=== PATIENT | female | born 1945 | race Caucasian/White ===

== ENCOUNTER → 2016-07-06 | Day surgery (SDC) | payer OTHER ==
[~2016-07-06] VITALS: Ht 154.9 cm; Wt 71.7 kg
[~2016-07-06] MED LIST: /ESOM40CA OR; ACET500C OR; ACETAMINOPHEN 325 MG TAB PO PRN; ACETYLCHOLINE OPHTH SOLN 1% 2ML As Ordered ONE; ALEVE PO; ASPI1TAB PO; AZEL0.055; AZEL0.1S3; AcetaZOLAMIDE 500 MG ER CAP PO ONE; BSS with VANC/TOB/EPI for EYE CASES IR ONE; BUPR1TAB17 PO; CEFUROXIME 1MG/0.1ML INTRACAMERAL INJ As Ordered ONE; CELE10TA PO; CHLO25TA PO; CITRTAB18 PO; COMB0.2S OU; CYCLOPENTOLATE 2% OPHTH SOLN As Ordered ONE; CYCLOPENTOLATE 2% OPHTH SOLN OS ONE; D5W/0.2% SODIUM CHLORIDE 250 ML IV SCH; FISH100049 PO; FLUTISP; HEALON DUET (HEALON 10MG/ML 0.55ML & HEALON ENDOCOAT 30MG/ML 0.85ML) As Ordered ONE; HYDROCHLOROTHIAZIDE PO; KETOROLAC 0.5% OPHTH SOLN OS ONE; LIDOCAINE 1% SDV 5 ML VIAL As Ordered ONE; LIDOCAINE 4% INJ 5 ML AMP OU ONE; LISINOPRIL PO; LOSA100T36 PO; MIDAZOLAM INJ 2 MG/2 ML VIAL (J2250) As Ordered ONE; MULT1TAB9 PO; NAPR500T2 PO; NEXI40GR PO; OFLOXACIN 0.3 % (OCUFLOX) OPTH SOL 5ML As Ordered ONE; OFLOXACIN 0.3 % (OCUFLOX) OPTH SOL 5ML OS ONE; PHENYLEPHRINE 2.5% OPHTH SOL 2ML As Ordered ONE; PHENYLEPHRINE 2.5% OPHTH SOL 2ML OS ONE; POTA10TA2 PO; POVIDONE-IODINE 5% OPHTH PREP SOL 30ML As Ordered ONE; PROPARACAINE 0.5% OPHTH SOL 15ML OS PRN; REST0.05 OU; SALI0.653; SLOWTAB2 PO; TRAV04OPD OD; TRIMETHOBENZAMIDE 300 MG CAP PO PRN; TROPICAMIDE 1% OPHTH SOLN 2 ML As Ordered ONE; TROPICAMIDE 1% OPHTH SOLN 2 ML OS ONE; TYLE500T78 PO; VITA-112 PO; VITA400C35 PO; WELL100T PO; fentaNYL 100 MCG/2 ML INJECTION (J3010) As Ordered ONE
[2016-07-06 09:30] VITALS: BP 139/64
--- NOTE | 2016-07-07 09:31 | RO ---
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 PROCEDURE: Phacoemulsification with intraocular lens implantation. PCB00, plus 24 and endocyclophotocoagulation and placement of the eye Glaukos iStent left eye. SURGEON: Dr. Denver Liriano BEE TENDER: None. ANESTHESIA: COMPLICATION: None. DESCRIPTION OF PROCEDURE: Patient was brought to the operating room and laid in the supine position. Left eye was prepped and draped in a sterile fashion for ophthalmic surgery and a lid speculum was placed. A temporal clear corneal incision was made after the sideport incision where EndoCoat was injected into the anterior chamber. Capsulorrhexis was done, followed by hydrodissection and phacoemulsification in a divide and conquer method. Excess cortical material was aspirated through the irrigation and aspiration cannula and Healon placed in the capsular bag, followed by the introduction of the intraocular lens, which was PCB00, plus 24 diopters. Healon was then placed in the ciliary sulcus and endocyclophotocoagulation was done at 280 degrees as visualized on the screen. The setting was 25 milliwatts and good results were noted by the shrinking of the ciliary processes. Healon was then placed into the anterior chamber to visualize the infranasal trabecular meshwork. The patient's head was rotated away from the surgeon and microscope under high magnification. With the help of the Gonio lens, the iStent was place in the infranasal quadrant. Excess viscoelastic was aspirated, wound was hydrate, lid speculum removed and the patient returned to recovery room in stable condition.
== END | disposition home or self-care (01) ==
LOC: M SDC 06:57
PROVIDERS: ATTEND Ophthalmology
DX: H26.9 Unspecified cataract (principal); H40.9 Unspecified glaucoma; I10 Essential (primary) hypertension; K21.9 Gastro-esophageal reflux disease without esophagitis; G47.33 Obstructive sleep apnea (adult) (pediatric); J30.9 Allergic rhinitis, unspecified; F41.9 Anxiety disorder, unspecified; F34.1 Dysthymic disorder; E83.42 Hypomagnesemia; E78.00 Pure hypercholesterolemia, unspecified; K52.9 Noninfective gastroenteritis and colitis, unspecified; E78.5 Hyperlipidemia, unspecified; M19.90 Unspecified osteoarthritis, unspecified site; F32.89 Other specified depressive episodes; E66.9 Obesity, unspecified; Z68.30 Body mass index [BMI] 30.0-30.9, adult; R73.09 Other abnormal glucose; I35.0 Nonrheumatic aortic (valve) stenosis; K82.4 Cholesterolosis of gallbladder; R73.9 Hyperglycemia, unspecified; M11.211 Other chondrocalcinosis, right shoulder; Z88.5 Allergy status to narcotic agent; Z79.899 Other long term (current) drug therapy; Z79.82 Long term (current) use of aspirin; Z87.891 Personal history of nicotine dependence; Z90.710 Acquired absence of both cervix and uterus
CPT/HCPCS: 66711; 66984; C1783; J2250; J3010

== ENCOUNTER 2018-08-01 08:07 | Day surgery (SDC) | payer OTHER ==
[~2018-08-01] VITALS: Ht 154.9 cm; Wt 69.4 kg
[2018-08-01] MEDS: NS 1,000 ML IV ONE (06:00)
[~2018-08-01 08:07] MED LIST changes: -/ESOM40CA OR; -ACETAMINOPHEN 325 MG TAB PO PRN; -ACETYLCHOLINE OPHTH SOLN 1% 2ML As Ordered ONE; -ASPI1TAB PO; +ASPI81TA26 PO; -AcetaZOLAMIDE 500 MG ER CAP PO ONE; -BSS with VANC/TOB/EPI for EYE CASES IR ONE; -BUPR1TAB17 PO; +BUPR1TAB53 PO; -CEFUROXIME 1MG/0.1ML INTRACAMERAL INJ As Ordered ONE; +CRES10TA PO; -CYCLOPENTOLATE 2% OPHTH SOLN As Ordered ONE; -CYCLOPENTOLATE 2% OPHTH SOLN OS ONE; -D5W/0.2% SODIUM CHLORIDE 250 ML IV SCH; -HEALON DUET (HEALON 10MG/ML 0.55ML & HEALON ENDOCOAT 30MG/ML 0.85ML) As Ordered ONE; -KETOROLAC 0.5% OPHTH SOLN OS ONE; -LIDOCAINE 1% SDV 5 ML VIAL As Ordered ONE; -LIDOCAINE 4% INJ 5 ML AMP OU ONE; -LOSA100T36 PO; +LOSA100T50 PO; -MIDAZOLAM INJ 2 MG/2 ML VIAL (J2250) As Ordered ONE; +NAPR-885 PO; -NAPR500T2 PO; +NEXI1CAP3 OR; -OFLOXACIN 0.3 % (OCUFLOX) OPTH SOL 5ML As Ordered ONE; -OFLOXACIN 0.3 % (OCUFLOX) OPTH SOL 5ML OS ONE; +PANT40TA3 PO; -PHENYLEPHRINE 2.5% OPHTH SOL 2ML As Ordered ONE; -PHENYLEPHRINE 2.5% OPHTH SOL 2ML OS ONE; -POTA10TA2 PO; +POTA1TAB23 PO; -POVIDONE-IODINE 5% OPHTH PREP SOL 30ML As Ordered ONE; -PROPARACAINE 0.5% OPHTH SOL 15ML OS PRN; +SALI0.6528; -SALI0.653; +TIMOXEOPD OU; -TRIMETHOBENZAMIDE 300 MG CAP PO PRN; -TROPICAMIDE 1% OPHTH SOLN 2 ML As Ordered ONE; -TROPICAMIDE 1% OPHTH SOLN 2 ML OS ONE; -fentaNYL 100 MCG/2 ML INJECTION (J3010) As Ordered ONE
[2018-08-01] MEDS ORDERED: PROPOFOL 200 MG/20 ML VIAL As Ordered ONE ×2 (08:56→09:34)
[2018-08-01] MEDS ORDERED: LIDOCAINE 2% INJ 100 MG/5 ML SDV (FOR ANES.) As Ordered ONE (08:56)
[2018-08-01] MEDS ORDERED: OMEP40CA2 PO (09:08)
[2018-08-01] MEDS ORDERED: ONDANSETRON 4MG/2ML VIAL (J2405) As Ordered ONE (09:24)
--- NOTE | 2018-08-01 09:44 | ROOR ---
Patient Name: Amberly Cruz Procedure Date: 08/01/2018 9:14 AM Date of : 1945 Age: 73 Room: [facility] Gender: Female Note Status: Finalized Procedure: Total Colonoscopy to Cecum + Bx. To r/o Microscopic Colitis Indications: Change in bowel habits Providers: Gee San MD Referring MD: Dang ARNOLD MD Requesting Provider: Medicines: Monitored Anesthesia Care Complications: No immediate complications. Procedure: Pre-Anesthesia Assessment: - The heart rate, respiratory rate, oxygen saturations, blood pressure, adequacy of pulmonary ventilation, and response to care were monitored throughout the procedure. The Colonoscope was introduced through the anus and advanced to the cecum, identified by appendiceal orifice and ileocecal valve. The colonoscopy was performed without difficulty. The patient tolerated the procedure well. The quality of the bowel preparation was excellent. Findings: The perianal and digital rectal examinations were normal. Non-bleeding internal hemorrhoids were found during retroflexion. The hemorrhoids were small and Grade I (internal hemorrhoids that do not prolapse). Multiple medium-mouthed diverticula were found in the recto-sigmoid colon, sigmoid colon and descending colon. The exam was otherwise without abnormality on direct and retroflexion views. Biopsies for histology were taken with a cold forceps from the cecum, ascending colon, transverse colon and rectosigmoid colon for evaluation of microscopic colitis. The exam was otherwise without abnormality. Impression: - Non-bleeding internal hemorrhoids. - Diverticulosis in the recto-sigmoid colon, in the sigmoid colon and in the descending colon. - The examination was otherwise normal on direct and retroflexion views. - The examination was otherwise normal. - Biopsies were taken with a cold forceps from the cecum, ascending colon, transverse colon and rectosigmoid colon for evaluation of microscopic colitis. - The exam was otherwise normal to the cecum. Recommendation: - Patient has a contact number available for emergencies. The signs and symptoms of potential delayed complications were discussed with the patient. Return to normal activities tomorrow. Written discharge instructions were provided to the patient. - High fiber diet. - Discharge patient to home. - Continue present medications. - Await pathology results. - Telephone GI clinic for pathology results in 1 week. - Repeat colonoscopy for symptoms only. - Check Portal Online for Path Results.([email or web address] - The findings and recommendations were discussed with the patient's family. Gee San MD Gee San MD 08/01/2018 9:43:57 AM Electronically signed by Gee San MD Number of Addenda: 0 Note Initiated On: 08/01/2018 9:14 AM Estimated Blood Loss: Estimated blood loss: none.
[2018-08-01 10:05] VITALS: BP 124/58
== END 2018-08-01 10:17 | disposition home or self-care (01) ==
LOC: M OPP 08:07
PROVIDERS: ATTEND Internal Medicine Gastroenterology
DX: K64.0 First degree hemorrhoids (principal); K57.30 Diverticulosis of large intestine without perforation or abscess without bleeding; R19.4 Change in bowel habit
CPT/HCPCS: 45380; 88305; J2405

== ENCOUNTER → 2018-08-16 | Outpatient (REF) | payer OTHER ==
[~2018-08-16] MED LIST changes: +OMEP40CA2 PO
== END ==
LOC: M LAB REF 11:04
PROVIDERS: ATTEND Physician Assistant
DX: R10.30 Lower abdominal pain, unspecified (principal)

== ENCOUNTER 2018-09-22 19:13 | Emergency (ER) | payer OTHER ==
[~2018-09-22] VITALS: Ht 154.9 cm; Wt 70.5 kg
[~2018-09-22 19:13] MED LIST changes: +AMLO5TAB6 PO; +KRIL1CAP10 PO; +PRED20TA PO; +ROSU5TAB4 PO
[2018-09-22 20:20] LABS: BASO % 0.2 % (0.0-1.0); EOS # 0.2 10^3/uL (0.0-0.50); EOS % 1.4 % (0.0-3.0); HEMOGLOBIN 12.2 g/dl (12.0-15.5); LYMPH # 2.6 10^3/uL (1.5-4.5); MEAN CORPUSCULAR HEMOGLOBIN 33.3 pg (27.0-33.0); MEAN CORPUSCULAR HGB CONC 34.9 g/dl (32.0-36.5); MEAN CORPUSCULAR VOLUME 95.6 fl (80.0-96.0); MONO # 1.6 10^3/uL (0.0-0.8); NEUTROPHILS # 8.7 10^3/uL (1.8-7.7); PLATELET COUNT, AUTOMATED 273 10^3/uL (150-450); RED BLOOD COUNT 3.66 10^6/uL (4.00-5.40); WHITE BLOOD COUNT 13.2 10^3/uL (4.0-10.0)
[2018-09-22 20:44] LABS: BILIRUBIN,TOTAL 0.4 MG/DL (0.2-1.0); CALCIUM LEVEL 9.6 MG/DL (8.8-10.2); CREATININE FOR GFR 1.11 MG/DL (0.55-1.30); GLOMERULAR FILTRATION RATE 51.6 (>39); POTASSIUM SERUM 3.9 MEQ/L (3.5-5.1)
[2018-09-22 20:45] LABS: ALBUMIN 3.5 GM/DL (3.2-5.2); BILIRUBIN,DIRECT 0.1 MG/DL (0.0-0.2); TOTAL PROTEIN 6.4 GM/DL (6.4-8.2)
[2018-09-22] MEDS ORDERED: ONDANSETRON 4MG/2ML VIAL (J2405) IV ONE (20:45)
[2018-09-22] MEDS ORDERED: MORPHINE 2 MG/ML 1ML SYRINGE (J2270) IV ONE (20:45)
[2018-09-22] MEDS ORDERED: NS 1,000 ML IV SCH (20:45)
[2018-09-22] MEDS ORDERED: ISOVUE-370 76% 100ML VIAL (Q9967) As Ordered ONE (20:57)
--- NOTE | 2018-09-22 23:20 | REPVR ---
EXAM: CT Abdomen and Pelvis With Contrast EXAM DATE/TIME: 09/22/2018 10:24 PM CLINICAL HISTORY: 73 years old, female; Abdominal pain; Localized; Right lower quadrant (rlq); Prior surgery; Surgery date: 6+ months; Additional info: Rlq pain; R/O appy TECHNIQUE: Imaging protocol: Axial computed tomography images of the abdomen and pelvis with intravenous contrast. Coronal and sagittal reformatted images were created and reviewed. Radiation optimization: All CT scans at this facility use at least one of these dose optimization techniques: automated exposure control; mA and/or kV adjustment per patient size (includes targeted exams where dose is matched to clinical indication); or iterative reconstruction. Contrast material: ISOVUE 370; Contrast volume: 100 ml; Contrast route: IV; COMPARISON: No relevant prior studies available. FINDINGS: Lung bases are clear. No pleural or pericardial effusion. The liver, spleen, pancreas and adrenals are grossly normal. Gallbladder is normally distended with no evidence of calcified gallstones. Kidneys demonstrate symmetric function. No focal parenchymal abnormalities or obstructive uropathy. Atherosclerotic changes identified within the abdominal aorta and aortic branch vessels with no evidence of aneurysmal dilatation. Small bowel loops are grossly normal. There is a normal caliber appendix with no CT evidence of appendicitis. Moderate left-sided colonic diverticular changes. No evidence of diverticulitis. Pelvic organs are grossly normal. Uterus appears surgically absent. No significant free fluid in the abdomen or pelvis. Visualized osseous structures are grossly normal for age. IMPRESSION: No acute intra-abdominal or pelvic process. No evidence of enteric obstruction, appendicitis, diverticulitis or obstructive uropathy. Additional nonemergent findings as described above. Electronically signed by: Riley Cortes On 09/22/2018 23:20:03 PM
[2018-09-22 23:36] VITALS: BP 141/67
[2018-09-22] MEDS ORDERED: NORC1TAB7 PO (23:40)
[2018-09-22] MEDS ORDERED: KEFL500C17 PO (23:40)
[2018-09-22] MEDS ORDERED: ONDA4TAB5 PO (23:40)
[2018-09-22] MEDS ORDERED: CEPHALEXIN 500 MG CAP PO ONE (23:45)
[2018-09-22] MEDS ORDERED: NORCO 5/325MG TABLET (BULK FOR ED) PO ONE (23:45)
[2018-09-22] MEDS ORDERED: ONDANSETRON 4 MG ORAL DISINTEGRATING TAB (Q0162 PER 1MG) PO ONE (23:45)
== END 2018-09-22 23:53 | disposition home or self-care (01) ==
LOC: M ED 19:13
DX: N30.00 Acute cystitis without hematuria (principal); S39.011A Strain of muscle, fascia and tendon of abdomen, initial encounter; X58.XXXA Exposure to other specified factors, initial encounter; Y92.89 Other specified places as the place of occurrence of the external cause; I10 Essential (primary) hypertension; K21.9 Gastro-esophageal reflux disease without esophagitis; F32.9 Major depressive disorder, single episode, unspecified; Z87.442 Personal history of urinary calculi; Z87.891 Personal history of nicotine dependence; Z88.5 Allergy status to narcotic agent; Z79.899 Other long term (current) drug therapy
CPT/HCPCS: 74177; 80048; 80076; 81001; 83690; 85025; 87086; 96374; 96375; 99284; J2270; J2405; Q0162; Q9967

== ENCOUNTER 2018-09-29 16:27 | Inpatient (IN) | payer OTHER ==
[~2018-09-29] VITALS: Ht 154.9 cm; Wt 68.0 kg
[~2018-09-29 16:27] MED LIST changes: +KEFL500C17 PO; +NORC1TAB7 PO; +ONDA4TAB5 PO
[2018-09-29] MEDS ORDERED: DIAZ5TAB PO (16:50)
[2018-09-29] MEDS ORDERED: IBUP-1022 PO (16:50)
[2018-09-29] MEDS ORDERED: MORPHINE 4 MG/ML 1ML VIAL/SYRINGE (J2270) IV ONE (17:00)
[2018-09-29] MEDS ORDERED: NS 500 ML IV ONE (17:00)
[2018-09-29] MEDS ORDERED: ONDANSETRON 4MG/2ML VIAL (J2405) IV ONE (17:00)
[2018-09-29 17:24] LABS: BASO % 0.2 % (0.0-1.0); EOS # 0.1 10^3/uL (0.0-0.50); EOS % 0.5 % (0.0-3.0); HEMATOCRIT 33.7 % (36.0-47.0); HEMOGLOBIN 11.4 g/dl (12.0-15.5); LYMPH # 1.1 10^3/uL (1.5-4.5); LYMPH % 11.2 % (24.0-44.0); MEAN CORPUSCULAR HEMOGLOBIN 31.3 pg (27.0-33.0); MEAN CORPUSCULAR HGB CONC 33.8 g/dl (32.0-36.5); MEAN CORPUSCULAR VOLUME 92.6 fl (80.0-96.0); MONO # 0.6 10^3/uL (0.0-0.8); MONO % 6.3 % (0.0-5.0); NEUTROPHILS # 8.2 10^3/uL (1.8-7.7); NEUTROPHILS % 81.6 % (36.0-66.0); PLATELET COUNT, AUTOMATED 411 10^3/uL (150-450); RED BLOOD COUNT 3.64 10^6/uL (4.00-5.40); WHITE BLOOD COUNT 10.1 10^3/uL (4.0-10.0)
--- NOTE | 2018-09-29 17:44 | REP ---
Clinical: Back pain . Comparison: 09/14/2018 to the Findings: The mediastinum and cardiac silhouette are stable and within normal limits for portable technique. The lung bernal are clear without acute consolidation, effusion, or pneumothorax. Skeletal structures are intact. Impression: No acute cardiopulmonary process appreciated. Electronically Signed by Srikanth Pablo MD 09/29/2018 05:36 P
[2018-09-29] MEDS ORDERED: ACETAMINOPHEN 325 MG TAB PO ONE (18:00)
[2018-09-29 18:05] LABS: ALBUMIN 2.9 GM/DL (3.2-5.2); ALT/SGPT 26 U/L (12-78); AMYLASE 71 U/L (25-115); BILIRUBIN,DIRECT 0.1 MG/DL (0.0-0.2); BILIRUBIN,TOTAL 0.3 MG/DL (0.2-1.0); BLOOD UREA NITROGEN 12 MG/DL (7-18); CALCIUM LEVEL 9.5 MG/DL (8.8-10.2); CARBON DIOXIDE LEVEL 28 MEQ/L (21-32); CHLORIDE LEVEL 103 MEQ/L (98-107); CPK CREATINE PHOSPHOKINASE 45 U/L (26-192); CREATININE FOR GFR 0.85 MG/DL (0.55-1.30); GLOMERULAR FILTRATION RATE > 60.0 (>39); GLUCOSE, FASTING 89 MG/DL (70-100); LIPASE 81 U/L (73-393); MB/CK RELATIVE INDEX 2.67 (< OR =4); POTASSIUM SERUM 3.7 MEQ/L (3.5-5.1); SODIUM LEVEL 141 MEQ/L (136-145); TOTAL PROTEIN 6.6 GM/DL (6.4-8.2); TROPONIN I < 0.02 NG/ML (< 0.10)
[2018-09-29 18:11] LABS: ERYTHROCYTE SEDIMENTATION RATE 114 mm/hr (0-30)
[2018-09-29] MEDS ORDERED: MORPHINE 2 MG/ML 1ML SYRINGE (J2270) IV ONE (18:45)
[2018-09-29] MEDS ORDERED: PROHANCE 279.3MG/ML 15ML VIAL (A9576) As Ordered ONE (20:05)
[2018-09-29] MEDS ORDERED: MORPHINE 2 MG/ML 1ML SYRINGE (J2270) IV PRN (22:30)
--- NOTE | 2018-09-29 22:33 | REPVR ---
EXAM: MR Cervical Spine Without and With Contrast EXAM DATE/TIME: 09/29/2018 8:33 PM CLINICAL HISTORY: 73 years old, female; Pain; Cervicalgia; Patient HX: PT states she "hurts all over" has been vomitting, diarhea for several days, shakes, fever, h/a nki, no priors; Additional info: Back pain x 3 wks, fever RO out epidural abscess and disc TECHNIQUE: Imaging protocol: Multiplanar magnetic resonance images of the cervical spine without and with intravenous contrast. Contrast material: PROHANCE; Contrast volume: 14 ml; Contrast route: 20G ANGIO COMPARISON: No relevant prior studies available. FINDINGS: Normal vertebral alignment with no segmental subluxation. Vertebral body height, morphology and marrow signal are normal. No fracture or destructive process. No abnormal or concerning osseous enhancement Benign degenerative endplate changes are present C4-5 through C6-7, with endplate vertebral body osteophytes. Degenerative disc height loss is present at C6-7, C5-6 and to a lesser extent T4-5. Cervical cord is normal in morphology and signal. No abnormal cord enhancement Imaged structures within the posterior fossa are unremarkable. C2-3: No significant canal or foraminal stenosis. C3-4: No significant canal or foraminal stenosis. C4-5: Minor ridging disc/osteophyte complex. No spinal canal narrowing. Mild asymmetric left neural foraminal narrowing secondary to uncovertebral hypertrophy. C5-6: Ridging disc/osteophyte complex with no significant spinal canal narrowing and minimal neural foraminal compromise. C6-7: Ridging disc/osteophyte complex with mild indentation on the ventral thecal sac and minimal neural foraminal stenosis No focal prevertebral soft tissue abnormality. Superficial to the spinous process of C6 and C7 there is low-grade soft tissue enhancement which may represent mild superficial soft tissue inflammation. No fluid collection IMPRESSION: Mild superficial soft tissue enhancement superficial to the C6 and C7 spinous processes, which may represent bruising or mild superficial ligament strain. No fluid collection or evidence of drainable soft tissue infection. No evidence of epidural abscess, spinal infection or acute disc extrusion. Mild cervical spondylosis as indicated above Electronically signed by: Sarwat Lockwood On 09/29/2018 22:33:46 PM
--- NOTE | 2018-09-29 22:36 | REPVR ---
EXAM: MR Thoracic Spine Without and With Contrast EXAM DATE/TIME: 09/29/2018 8:25 PM CLINICAL HISTORY: 73 years old, female; Pain in thoracic spine; Patient HX: PT states she "hurts all over" has been vomitting, diarhea for several days, shakes, fever, h/a nki, no priors; Additional info: Back pain x 3 wks, fever RO out epidural abscess and disc TECHNIQUE: Imaging protocol: Multiplanar magnetic resonance images of the thoracic spine without and with intravenous contrast. Contrast material: PROHANCE; Contrast volume: 14 ml; Contrast route: 20G ANGIO COMPARISON: No relevant prior studies available. FINDINGS: Skin marker is present posterior to the midline, mid thoracic Normal segmental thoracic vertebral alignment. Vertebral body height, morphology and marrow signal are normal. No acute fracture or destructive process. No abnormal osseous enhancement Thoracic cord is normal in morphology and signal with no focal lesion. No abnormal thoracic cord or epidural enhancement. No extrinsic compression of the thoracic cord. No epidural fluid collection Normal CSF signal surrounds the cord at all levels. Appropriate disc height and hydration for age. No significant canal or foraminal stenosis at any level. No disc extrusion or significant protrusion. No focal prevertebral soft tissue swelling, fluid collection or mass. IMPRESSION: Unremarkable pre-and postcontrast MRI of the thoracic spine for age. Electronically signed by: Sarwat Lockwood On 09/29/2018 22:36:44 PM
--- NOTE | 2018-09-29 22:51 | REPVR ---
EXAM: MR Lumbar Spine Without and With Contrast. EXAM DATE/TIME: 09/29/2018 8:53 PM CLINICAL HISTORY: 73 years old, female; Pain; [place]; Patient HX: PT states she "hurts all over" has been vomitting, diarhea for several days, shakes, fever, h/a nki, no priors; Additional info: Back pain x 3 wks, fever RO out epidural abscess and disc TECHNIQUE: Imaging protocol: Multiplanar magnetic resonance images of the lumbar spine without and with intravenous contrast. Contrast material: PROHANCE; Contrast volume: 14 ml; Contrast route: 20G ANGIO COMPARISON: No relevant prior studies available. FINDINGS: Lumbar vertebrae show no segmental malalignment. Vertebral body height, morphology and marrow signal are unremarkable. Normal disc height is maintained at all levels with only mild height loss at L1-2. Mild disc desiccation changes are seen at all levels. No abnormal disc enhancement Conus terminates at the L1-2 level with no abnormality in the conus or distal cord. Normal dependent layering of cauda equina nerve roots. No abnormal cord or conus enhancement and no enhancing epidural fluid collection or mass T12-L1: Mild disc bulge and posterior spurring. Minimal canal narrowing. L1-2: No canal stenosis or foraminal narrowing. L2-3: No canal stenosis or foraminal narrowing. L3-4: No canal stenosis or foraminal narrowing. L4-5: No canal stenosis or foraminal narrowing. L5-S1: No canal stenosis or foraminal narrowing. No enlarged lymph nodes or prevertebral soft tissue abnormality. Mild superficial subcutaneous soft tissue edema and enhancement superficial to the supraspinatus ligament and spinous processes. No focal fluid collection. Mild soft tissue enhancement and low-grade edema of the posterior paraspinous muscles Imaged distal abdominal aorta is normal in caliber. IMPRESSION: Mild subcutaneous and posterior paraspinous edema and enhancement suggesting mild muscular and subcutaneous inflammation extrinsic to the spinal canal and osseous spine. No abscess. No intradural or epidural abnormality and no significant neural compression at any level. Electronically signed by: Sarwat Lockwood On 09/29/2018 22:51:08 PM
[2018-09-30] MEDS ORDERED: ONDA4TAB5 PO (00:06)
[2018-09-30] MEDS ORDERED: ACET-683 PO (00:06)
[2018-09-30] MEDS ORDERED: ASPI81CH33 PO (00:06)
[2018-09-30] MEDS ORDERED: PATIENT COMMENTS (00:09)
[2018-09-30] MEDS ORDERED: PERCOCET 5MG/325MG TAB PO PRN (00:45)
[2018-09-30] MEDS ORDERED: ACETAMINOPHEN 500 MG TAB PO SCH (00:45)
[2018-09-30] MEDS ORDERED: diazePAM 5 MG TAB PO PRN (00:45)
[2018-09-30 01:20] VITALS: BP 133/72
[2018-09-30] MEDS ORDERED: PILL CUTTER 1 EACH XX PRN (01:30)
[2018-09-30 01:43] LABS: LDH LACTATE DEHYDROGENASE 143 U/L (84-246)
[2018-09-30] MEDS ORDERED: ACETAMINOPHEN TAB 650MG DOSE (2X325MG) PO PRN (01:45)
[2018-09-30] MEDS: PERCOCET 5MG/325MG TAB PO PRN ×2 (01:54→12:51)
--- NOTE | 2018-09-30 02:10 | HPEPDOC ---
General Date of Admission Sep 29, 2018 at 23:56 Date of Service: Sep 30, 2018 Primary Care Physician: Dang Shook Attending Physician: JENN CURTIS MD Chief Complaint The patient is a 73-year-old female admitted with a reason for visit of Back Pain. Source: Patient, Family, Old records Exam Limitations: No limitations Timing/Duration: Week(s) Associated Symptoms: Loss of appetite History of Present Illness Ms. Cruz is a 73-year-old female who presents to [facility] Emergency Department with diffuse body wide. She is accompanied by her spouse. Patient states that her symptoms initially started a couple weeks ago on 09/14/2018 when she was lifting bags of mulch and bird seed when she thinks she pulled something in her left shoulder. She experienced pain throughout her entire left arm. There was no weakness, numbness, or tingling. There was no pain elsewhere and she was not diaphoretic. She was urged by family to be evaluated by the ED for possible heart attack. Troponin was negative. Elevation in creatinine. Chest x-ray revealing possible reactive airway disease versus mild pulmonary edema. Patient was discharged with instructions to discontinue Naproxen, Losartan, and Chlorthalidone. She was advised to start A mlodipine and Prednisone 40mg over the next four days. Instructed to follow up with her primary care provider. Patient returned to the ED on 09/22/2018 stating she developed a right sided radiating pain from her low back into her groin similar to a kidney stone. She has a remote history of kidney stones. However, she denies urinary symptoms, including dysuria, low pelvic pain, hematuria. Labs revealed a leukocytosis of 13.2, resolution in her elevated creatinine, and positive urinalysis with trace leukocyte esterase, 4 WBC, and 1+ bacteria. Patient was discharged with urinary tract infection and prescribed Cephalexin 500mg by mouth every 12 hours for 10 days. Patient then presented to [facility] with back pain. She describes the pain as a "strained pain" which is not relieved with change in position, pain medication, ice pack, heating pad, or massage. She presents to [facility] ED with similar symptoms. Patient does not recall an inciting event. There has not been any trauma. She does feel weak overall. There is no numbness or tingling. She has not fallen. She is not incontinent of bladder or bowel. She does, on occasion note that it is difficult to rise from a chair, but does not have difficulty combing her hair. There are no "electric shock" sensations on her skin. She does report a diffuse red rash when she becomes ill, but is not itchy and usually dissipates 3 days into illness. She states that it has not occurred during this illness. Furthermore, she does report arthritis and has chronic swelling in her right ankle from a former ankle sprain. Denies sores in her mouth, genital region, or anywhere else on her body. There are no rashes or skin lesions. No chest pain or palpitations. No bladder concerns. She is unsure of specific weight loss, but her notes that she has lost about 10 pounds since the beginning of all of her musculoskeletal complaints. Emergency Department evaluation reveals stable vital signs. She has a mild neutrophilic leukocytosis. Her ESR is significantly elevated at 114. CRP is 11.6. Urinalysis was negative. Blood culture and respiratory panel are pending. Chest x-ray and T-spine MRI were unremarkable. MRI of C-spine and L/S-spine documented as follows: MRI C-spine without/with contrast reveals mild superficial soft tissue enhancement superficial to the C6 and C7 spinous processes, which may represent bruising or mild superficial ligament strain. No fluid collection or evidence of drainable soft tissue infection. No evidence of epidural abscess, spinal infection or acute disc extrusion. Mild cervical spondylosis as indicated above. MRI L/S-spine without/with contrast reveals mild subcutaneous and posterior paraspinous edema and enhancement suggesting mild muscular and subcutaneous inflammation extrinsic to the spinal canal and osseous spine. No abscess. No intradural or epidural abnormality and no significant neural compression at any level. Hospitalist service was consulted and patient was admitted for further medical management. Home Medications Scheduled Acetaminophen (Acetaminophen) 500 Mg Tablet, 500 MG PO Q4H, (Reported) Aspirin (Aspirin) 81 Mg Tab.chew, 81 MG PO DAILY, (Reported) Azelastine HCl (Azelastine HCl) 0.15 % Spr, 2 SPRAYS NA BID, (Reported) Brimonidine Tartrate/Timolol (Combigan 0.2%-0.5% Eye Drops) 1 Sabra Sabra, 1 DROP OU BID, (Reported) Cyclosporine (Restasis) 0.05 % Emu, 1 DROP OU BID, (Reported) Krill/Om-3/Dha/Epa/Phospho/Ast (Megared Prosper-3 Krill Oil Sfgl) 1 Each Capsule, 1 EACH PO DAILY, (Reported) Losartan Potassium (Losartan Potassium) 100 Mg Tab, 100 MG PO DAILY, (Reported) Magnesium Chloride (Slow-Mag) 1 Tab Tab, 2 TAB PO DAILY, (Reported) Pantoprazole Sodium (Pantoprazole Sodium) 40 Mg Tablet.dr, 40 MG PO DAILY, (Reported) Potassium Chloride (Potassium Chloride) 10 Meq Tab, 10 MEQ PO DAILY, (Reported) Rosuvastatin Calcium (Rosuvastatin Calcium) 5 Mg Tablet, 5 MG PO DAILY, (Reported) Timolol Maleate (Timolol Maleate) 100 Drop/5 Ml Sabra, 1 DROP OU BID, (Reported) Travoprost (Travatan Z) 50 Drop/2.5 Ml Soln, 1 DROP OD QHS, (Reported) Scheduled PRN Diazepam (Diazepam) 5 Mg Tablet, 2.5 MG PO BID PRN for MUSCLE SPASMS, (Reported) Ibuprofen (Ibuprofen) 600 Mg Tablet, 600 MG PO TID PRN for PAIN, (Reported) Naproxen (Naproxen) 500 Mg Tab, 500 MG PO DAILY PRN for PAIN, (Reported) Ondansetron HCl (Ondansetron HCl) 4 Mg Tablet, 4 MG PO Q4H PRN for NAUSEA OR VOMITING, (Reported) Miscellaneous Medications [Patient Comments] , (Reported) PATIENT STATES SHE HAS NOT TAKEN HER DAILY SCHEDULED MEDICATIONS FOR OVER A WEEK Allergies Coded Allergies: codeine (Verified Adverse Reaction, Mild, nausea, 07/25/18) GME ATTESTATION My faculty preceptor for this patient encounter was physically present during the encounter and was fully available. All aspects of the patient interview, examination, medical decision making process, and medical care plan development were reviewed and approved by the faculty preceptor. The faculty preceptor is aware and concurs with the plan as stated in the body of this note and will attest to such by his/her cosignature. ATTENDING NOTE I performed a history and physical examination of the patient and discussed management with the resident. I reviewed the residents note and agree with the documented findings and plan of care. Past Medical History Medical History 1. Grade 1 diastolic dysfunction 2. KRISTIN 3. HTN 4. Allergies 5. Depression 6. Dry eyes 7. GERD 8. DLP 9. Glaucoma Surgical History 1. Colonoscopy 2. B/L blepharoplasty 3. EGD Family History Father: , 62, cardiac Mother: , 87, Alzheimer's Siblings - Brother: x1, , 66, lung cancer - Brother: x1, alive, 87 - Sister: x1, alive, 81 - Sister: x1, alive, 75 - Brother: x1, alive, 67 Social History * Smoker: former Smoker (66 pack year history) Alcohol: rarely (beer, vodka) Drugs: denies Pets in the home: [facility]) Lives independently with of 40 years. Has two biological children - 2 sons, who are both alive and healthy. Has 4 step-children - 2 sons and 2 daughters, who are all alive and healthy. 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 and then worked for [employer]. She is a former smoke with a 66 pack year history. Will occasionally drink beer or vodka. Uses CBD oil for arthritis relief and blood pressure management. A-FIB/CHADSVASC A-FIB History Current/History of A-Fib/PAF?: No Review of Systems Constitutional: Reports: Weakness, Weight Loss (10 pounds over the course of 2 weeks); Denies: Chills, Fever, Night Sweats Eyes: Denies: Vision change, Conjunctivae inflammation, Eyelid inflammation ENT: Denies: Head Aches, Dysphagia, Sinus Congestion, Post Nasal Drip, Sore Throat, Epistaxis Skin: Denies: Rash, Lesions, Jaundice Pulmonary: Denies: Dyspnea, Cough, Pleuritic Chest Pain Cardiovascular: Reports: Edema (right ankle); Denies: Chest Pain, Palpitations, Orthopnea, Paroxysmal Noc. Dyspnea, Lt Headedness Gastrointestinal: Denies: Nausea, Vomiting, Abdominal Pain, Diarrhea, Constipation, Melena, Hematochezia Genitourinary: Denies: Dysuria, Frequency, Incontinence, Hematuria, Retention Hematologic: Denies: Bruising, Bleeding Excessively Endocrine: Denies: Polydipsia, Polyphagia Musculoskeletal: Reports: Back Pain, Shoulder Pain (left, significantly improved from 09/14/2018), Joint Pain (from arthritis); Denies: Neck Pain, Muscle Pain Neurological: Reports: Weakness; Denies: Numbness Physical Examination General Exam: Positive: Alert, Cooperative, No Acute Distress Eye Exam: Positive: PERRLA, Conjunctiva & lids normal, EOMI; Negative: Sclera icteric, Ptosis ENT Exam: Positive: Atraumatic, Mucous membr. moist/pink, Pharynx Normal, Tongue Midline, Nares Patent; Negative: Pharyngeal Edema Neck Exam: Positive: Supple, +2 carotid pulse wo bruit; Negative: JVD, thyromegaly, Lymphadenopathy Chest Exam: Positive: Clear to auscultation, Normal air movement; Negative: Rales, Rhonchi, Wheezing, Diminished Heart Exam: Positive: Rate Normal, Regular Rhythm, Normal S1, Normal S2; Negative: Gallops, Murmurs, Rubs Telemetry: Positive: Sinus Abdomen Exam: Positive: Normal bowel sounds, Soft, Other (pain with palpation of thoracolumbar region, no CVA tenderness, no abnormal skin findings, no rashes); Negative: Tenderness, Hepatospenomegaly, Mass, Hernia Extremity Exam: Positive: Edema (non-pitting edema around the right ankle), Normal pulses, Other (mild clonus to B/L feet); Negative: Clubbing, Cyanosis, Tenderness, Swelling Skin Exam: Negative: Rash, Breakdown, Lesion Neuro Exam: Positive: Normal Speech, Cranial Nerves 3-12 NL Psych Exam: Positive: Oriented x 3 Other physical findings 1. Chest x-ray, 1 view - No acute cardiopulmonary process appreciated. 2. MRI T-spine without/with contrast - Unremarkable pre-and postcontrast MRI of the thoracic spine for age. 3. MRI L/S-spine without/with contrast - Mild subcutaneous and posterior paraspinous edema and enhancement suggesting mild muscular and subcutaneous inflammation extrinsic to the spinal canal and osseous spine. No abscess. No intradural or epidural abnormality and no significant neural compression at any level. 4. MRI C-spine without/with contrast - Mild superficial soft tissue enhancement superficial to the C6 and C7 spinous processes, which may represent bruising or mild superficial ligament strain. No fluid collection or evidence of drainable soft tissue infection. No evidence of epidural abscess, spinal infection or acute disc extrusion. Mild cervical spondylosis as indicated above. Vital Signs Vital Signs Date Time Temp Pulse Resp B/P (MAP) Pulse Ox O2 Delivery O2 Flow Rate FiO2 09/30/18 01:02 97.6 74 18 124/58 (80) 93 Room Air Laboratory Data Labs 24H Laboratory Tests 2 09/29/18 16:53: Immature Granulocyte % (Auto) 0.2, White Blood Count 10.1H, Red Blood Count 3.64L, Hemoglobin 11.4L, Hematocrit 33.7L, Mean Corpuscular Volume 92.6, Mean Corpuscular Hemoglobin 31.3, Mean Corpuscular Hemoglobin Concent 33.8, Red Cell Distribution Width 11.9, Platelet Count 411, Neutrophils (%) (Auto) 81.6H, Lymphocytes (%) (Auto) 11.2L, Monocytes (%) (Auto) 6.3H, Eosinophils (%) (Auto) 0.5, Basophils (%) (Auto) 0.2, Neutrophils # (Auto) 8.2H, Lymphocytes # (Auto) 1.1L, Monocytes # (Auto) 0.6, Eosinophils # (Auto) 0.1, Basophils # (Auto) 0.0, Nucleated Red Blood Cells % (auto) 0.0, Erythrocyte Sedimentation Rate 114H, Urine Color YELLOW, Urine Appearance CLEAR, Urine pH 7.0, Urine Specific [place] 1.014, Urine Protein NEGATIVE, Urine Glucose (UA) NEGATIVE, Urine Ketones NEGATIVE, Urine Blood NEGATIVE, Urine Nitrite NEGATIVE, Urine Bilirubin NEGATIVE, Urine Urobilinogen 2.0H, Urine Leukocyte Esterase NEGATIVE, Urine WBC (Auto) 2, Urine RBC (Auto) 2, Urine Hyaline Casts (Auto) 0, Urine Bacteria (Auto) 1+H, Urine Squamous Epithelial Cells 1, Urine Mucus (Auto) SMALL, Urine Sperm (Auto) , Anion Gap 10, Glomerular Filtration Rate > 60.0, Lactic Acid Level 1.0, Calcium Level 9.5, Aspartate Amino Transf (AST/SGOT) 17, Alanine Aminotransferase (ALT/SGPT) 26, Alkaline Phosphatase 97, Total Bilirubin 0.3, Direct Bilirubin 0.1, Total Creatine Kinase 45, Creatine Kinase MB 1.0, Creatine Kinase MB Relative Index 2.67, Troponin I < 0.02, C-Reactive Protein, Quantitative 11.60H, Total Protein 6.6, Albumin 2.9L, Albumin/Globulin Ratio 0.78L, Amylase Level 71, Lipase 81 CBC/BMP Laboratory Tests 09/29/18 16:53 Red Blood Count 3.64 L, Mean Corpuscular Volume 92.6, Mean Corpuscular Hemoglobin 31.3, Mean Corpuscular Hemoglobin Concent 33.8, Red Cell Distribution Width 11.9, Neutrophils (%) (Auto) 81.6 H, Lymphocytes (%) (Auto) 11.2 L, Monocytes (%) (Auto) 6.3 H, Eosinophils (%) (Auto) 0.5, Basophils (%) (Auto) 0.2, Neutrophils # (Auto) 8.2 H, Lymphocytes # (Auto) 1.1 L, Monocytes # (Auto) 0.6, Eosinophils # (Auto) 0.1, Basophils # (Auto) 0.0 Microbiology Microbiology 09/29/18 Blood Culture, Received Pending 09/29/18 Blood Culture, Received Pending 09/30/18 Respiratory Virus Panel (PCR) (LIANG), Received Pending Plan / VTE VTE Prophylaxis Ordered?: Yes (TEDs, sequentials, Lovenox 40mg SQ daily) Plan Plan 1. Back pain - Differential is broad and includes musculoskeletal, neurological, inflammatory/rheumatological, infectious. MRI imaging is abnormal. Will start pain control with Percocet and Tylenol as needed. Inflammatory control with Prednisone. ESR and CRP and quite elevated. Will monitor daily labs. Inflammatory work-up pending. Less likely infectious and vital signs are stable and definite abscess noted on imaging. Could consider a rheumatology referral if abnormalities noted on inflammatory work-up. Physical therapy has been ordered. 2. Elevated inflammatory markers - Inflammatory/rheumatology work-up ordered. Prednisone 25mg PO daily. MRI L/S-spine reveals edema outside of the spinal canal. 3. HTN - Continue Losartan. 4. DLP - Holding statin due to risk of statin-induced myopathy. 5. GERD - Continue Pantoprazole daily. 6. Muscle spasms - Continue Valium as needed. Disposition Admit: Med/Surg Anticipated hospitalization: 2 nights Diet: Continue Current (2g sodium) Activity: Continue Current (activity as tolerated) Therapy: PT Medications: Increase Pain Meds (1-to-2 Percocet Q6HP), Start Steroids (Prednisone 25mg PO daily) Diagnostics: Check Labs, Repeat Labs in AM, Obtain Cultures Anticipated Discharge: Home VILMA DE SANTIAGO DO Sep 30, 2018 02:10 JENN CURTIS MD Oct 01, 2018 00:04
[2018-09-30 02:46] LABS: COMPLEMENT C3 181 MG/DL (90-180); COMPLEMENT C4 37 MG/DL (10-40)
[2018-09-30 06:00] VITALS: BP 130/71
[2018-09-30 06:36] LABS: HEMATOCRIT 29.7 % (36.0-47.0); HEMOGLOBIN 9.8 g/dl (12.0-15.5); PLATELET COUNT, AUTOMATED 371 10^3/uL (150-450); RED BLOOD COUNT 3.16 10^6/uL (4.00-5.40); WHITE BLOOD COUNT 7.4 10^3/uL (4.0-10.0)
[2018-09-30 06:39] LABS: TOTAL PROTEIN,RANDOM URINE 17.6 MG/DL (0.0-12.0)
[2018-09-30 07:03] LABS: BLOOD UREA NITROGEN 12 MG/DL (7-18); C REACTIVE PROTEIN QUANTITATIV 8.88 MG/DL (0.00-0.30); CALCIUM LEVEL 8.7 MG/DL (8.8-10.2); CARBON DIOXIDE LEVEL 28 MEQ/L (21-32); CHLORIDE LEVEL 107 MEQ/L (98-107); CREATININE FOR GFR 0.81 MG/DL (0.55-1.30); GLOMERULAR FILTRATION RATE > 60.0 (>39); GLUCOSE, FASTING 86 MG/DL (70-100); POTASSIUM SERUM 3.2 MEQ/L (3.5-5.1); SODIUM LEVEL 141 MEQ/L (136-145)
[2018-09-30 07:17] LABS: ERYTHROCYTE SEDIMENTATION RATE 81 mm/hr (0-30)
[2018-09-30] MEDS: ASPIRIN 81 MG CHEW TABLET PO SCH (08:11)
[2018-09-30] MEDS: LOSARTAN 50 MG TAB PO SCH (08:11)
[2018-09-30] MEDS: PANTOPRAZOLE 40MG TAB (PROTONIX) PO SCH (08:11)
[2018-09-30] MEDS: predniSONE 5 MG TAB PO SCH (08:12)
[2018-09-30] MEDS: ONDANSETRON 4 MG TAB (S0181) PO PRN ×2 (08:12→18:42)
[2018-09-30] MEDS: ENOXAPARIN 40 MG/0.4 ML SYRINGE (J1650) SC SCH (08:13)
[2018-09-30] MEDS: MAGNESIUM CHLORIDE 64 MG TABCR (SLO MAG) PO SCH (08:13)
--- NOTE | 2018-09-30 10:21 | IPNPDOC ---
Date Seen The patient was seen on 09/30/18. Progress Note SUBJECTIVE: Patient continues to complain of pain in the left shoulder, she tells me that it is in the right shoulder as well but not as bad. She tells me that the first time she presented to an half weeks ago she had pain in her hips as well but that the pain tends to wax and wane changes location between her hips and shoulders as well as low back. otherwise patient denies shortness breath, nausea, vomiting, fevers, chills OBJECTIVE PHYSICAL EXAMINATION: VITAL SIGNS: Please see below. GENERAL: Pleasant elderly womansitting up in bed awake alert oriented speaking in complete sentences no acute distress HEENT: Moist mucous membranes no elevation and CVP CARDIOVASCULAR: S1 S2 regular no additional heart sounds appreciated. RESPIRATORY: Clear to auscultation bilaterally. Tenderness bilaterally to palpation of the left more so than the right supraspinatus area ABDOMINAL: Bowel sounds present abdomen soft and nontender EXTREMITIES: No clubbing cyanosis or edema NEUROLOGICAL: Spontaneously moves all 4 extremities cranial 2 through 12 grossly intact no gross focal deficits appreciated PSYCHOLOGICAL: Appropriate LABORATORY DATA, MICROBIOLOGY: Please see below. IMAGING STUDIES: Chest x-ray:No acute cardiopulmonary process appreciated Thoracic spine MRI:Unremarkable pre-and postcontrast MRI of the thoracic spine for age. Lumbar spine MRI:Mild subcutaneous and posterior paraspinous edema and enhancement suggesting mild muscular and subcutaneous inflammation extrinsic to the spinal canal and osseous spine. No abscess. No intradural or epidural abnormality and no significant neural compression at any level. Cervical spine MRI:Mild superficial soft tissue enhancement superficial to the C6 and C7 spinous processes, which may represent bruising or mild superficial ligament strain. No fluid collection or evidence of drainable soft tissue infection. No evidence of epidural abscess, spinal infection or acute disc extrusion. Mild cervical spondylosis as indicated above ASSESSMENT AND PLAN: This is a 73-year-old female with shoulder pains. PROBLEMS: 1. Shoulder pain: Patient provides a curious history for the last 2-1/2 weeks with multiple ER presentations initially diagnosed with left chest wall pain and abdominal pain and body aches at different hospitals. By history she complains to me of bilateral shoulder pain as well as bilateral hip pain that waxes and wanes in changes geographically. Please see her very detailed H&P for full information. No visual changes or jaw claudication. Respiratory PCR panel negative she has no tremors. I will check a TSH. Serum aldolase protocol calcitonin and rhuematic panel is currently pending. ESR elevated at 114. Given her presentation and I do have concern for polymyalgia rheumatica. She is oriented but empirically started on prednisone 25 mg to 5 correct should be enough. I suspect she will improve over the next 48-72 hours in terms of her pain and will work with physical therapy to assess her functional status. She is currently being provided with Percocet for pain control 2. Diastolic congestive heart failure: Appears well compensated and euvolemic at this time, she is not on a diuretic she is on losartan 3. Obstructive sleep apnea: Recommend CPAP use as prescribed. 4. Hypertension: Controlled continue losartan 5. Seasonal allergies: Stable no medication use at this time 6. Gastroesophageal reflux disease: Continue with pantoprazole 7. Dyslipidemia: Statin on hold for concern of statin myopathy. My suspicion for this is quite low given that she has normal CKs 8. Glaucoma: Continue with Xalatan 9. Hypomagnesemia: Continue with Slow-Mag DVT prophylaxis: Lovenox DISPOSITION: Pending clinical improvement and PTOT. VS, I&O, 24H, [facility] Vital Signs/I&O Vital Signs Date Time Temp Pulse Resp B/P (MAP) Pulse Ox O2 Delivery O2 Flow Rate FiO2 09/30/18 08:11 130/71 09/30/18 06:00 98.1 73 18 95 09/30/18 01:02 Room Air I&O- Last 24 Hours up to 6 AM 09/30/18 06:00 Intake Total 650 ml Output Total 400 ml Balance 250 ml Laboratory Data 24H LABS Laboratory Tests 2 09/29/18 16:53: Immature Granulocyte % (Auto) 0.2, White Blood Count 10.1H, Red Blood Count 3.64L, Hemoglobin 11.4L, Hematocrit 33.7L, Mean Corpuscular Volume 92.6, Mean Corpuscular Hemoglobin 31.3, Mean Corpuscular Hemoglobin Concent 33.8, Red Cell Distribution Width 11.9, Platelet Count 411, Neutrophils (%) (Auto) 81.6H, Lymphocytes (%) (Auto) 11.2L, Monocytes (%) (Auto) 6.3H, Eosinophils (%) (Auto) 0.5, Basophils (%) (Auto) 0.2, Neutrophils # (Auto) 8.2H, Lymphocytes # (Auto) 1.1L, Monocytes # (Auto) 0.6, Eosinophils # (Auto) 0.1, Basophils # (Auto) 0.0, Nucleated Red Blood Cells % (auto) 0.0, Erythrocyte Sedimentation Rate 114H, Ur ine Color YELLOW, Urine Appearance CLEAR, Urine pH 7.0, Urine Specific [place] 1.014, Urine Protein NEGATIVE, Urine Glucose (UA) NEGATIVE, Urine Ketones NEGATIVE, Urine Blood NEGATIVE, Urine Nitrite NEGATIVE, Urine Bilirubin NEGATIVE, Urine Urobilinogen 2.0H, Urine Leukocyte Esterase NEGATIVE, Urine WBC (Auto) 2, Urine RBC (Auto) 2, Urine Hyaline Casts (Auto) 0, Urine Bacteria (Auto) 1+H, Urine Squamous Epithelial Cells 1, Urine Mucus (Auto) SMALL, Urine Sperm (Auto) , Anion Gap 10, Glomerular Filtration Rate > 60.0, Lactic Acid Level 1.0, Calcium Level 9.5, Aspartate Amino Transf (AST/SGOT) 17, Alanine Aminotransferase (ALT/SGPT) 26, Alkaline Phosphatase 97, Total Bilirubin 0.3, Direct Bilirubin 0.1, Total Creatine Kinase 45, Creatine Kinase MB 1.0, Creatine Kinase MB Relative Index 2.67, Troponin I < 0.02, C-Reactive Protein, Quantitative 11.60H, Total Protein 6.6, Albumin 2.9L, Albumin/Globulin Ratio 0.78L, Amylase Level 71, Lipase 81 09/30/18 01:10: Lactate Dehydrogenase 143, Complement C3 181H, Complement C4 37 09/30/18 05:53: Urine Random Creatinine 121.0, Urine Random Total Protein 17.6H 09/30/18 05:59: Nucleated Red Blood Cells % (auto) 0.0, Erythrocyte Sedimentation Rate 81H, Anion Gap 6L, Glomerular Filtration Rate > 60.0, Calcium Level 8.7L, C-Reactive Protein, Quantitative 8.88H, Blood Urea Nitrogen 12, Creatinine 0.81, Sodium Level 141, Potassium Level 3.2L, Chloride Level 107, Carbon Dioxide Level 28 09/30/18 07:30: CBC/BMP Laboratory Tests 09/29/18 16:53 Red Blood Count 3.64 L, Mean Corpuscular Volume 92.6, Mean Corpuscular Hemoglobin 31.3, Mean Corpuscular Hemoglobin Concent 33.8, Red Cell Distribution Width 11.9, Neutrophils (%) (Auto) 81.6 H, Lymphocytes (%) (Auto) 11.2 L, Monocytes (%) (Auto) 6.3 H, Eosinophils (%) (Auto) 0.5, Basophils (%) (Auto) 0.2, Neutrophils # (Auto) 8.2 H, Lymphocytes # (Auto) 1.1 L, Monocytes # (Auto) 0.6, Eosinophils # (Auto) 0.1, Basophils # (Auto) 0.0 09/30/18 05:59 Red Blood Count 3.16 L, Mean Corpuscular Volume 94.0, Mean Corpuscular Hemoglobin 31.0, Mean Corpuscular Hemoglobin Concent 33.0, Red Cell Distribution Width 12.0, Calcium Level 8.7 L Microbiology Microbiology 09/29/18 Blood Culture, Received Pending 09/29/18 Blood Culture, Received Pending 09/30/18 Respiratory Virus Panel (PCR) (LIANG) - Final, Complete GOMEZ GONZALES MD Sep 30, 2018 10:21
[2018-09-30 10:42] LABS: MAGNESIUM LEVEL 2.1 MG/DL (1.8-2.4)
[2018-09-30] MEDS: POTASSIUM CHLORIDE 10 MEQ SR TABLET PO SCH ×2 (12:50→20:12)
[2018-09-30 14:00] VITALS: BP 130/70
[2018-09-30] MEDS ORDERED: LATANOPROST 0.005% OPHTH SOLN 2.5 ML OD SCH (21:00)
[2018-09-30 22:00] VITALS: BP 132/69
[2018-10-01 06:00] VITALS: BP 134/68
[2018-10-01 06:23] LABS: HEMATOCRIT 29.3 % (36.0-47.0); HEMOGLOBIN 9.7 g/dl (12.0-15.5); MEAN CORPUSCULAR HEMOGLOBIN 31.8 pg (27.0-33.0); MEAN CORPUSCULAR HGB CONC 33.1 g/dl (32.0-36.5); MEAN CORPUSCULAR VOLUME 96.1 fl (80.0-96.0); PLATELET COUNT, AUTOMATED 359 10^3/uL (150-450); RED BLOOD COUNT 3.05 10^6/uL (4.00-5.40); WHITE BLOOD COUNT 7.2 10^3/uL (4.0-10.0)
[2018-10-01 06:48] LABS: BLOOD UREA NITROGEN 17 MG/DL (7-18); C REACTIVE PROTEIN QUANTITATIV 6.23 MG/DL (0.00-0.30); CALCIUM LEVEL 9.4 MG/DL (8.8-10.2); CARBON DIOXIDE LEVEL 26 MEQ/L (21-32); CHLORIDE LEVEL 108 MEQ/L (98-107); CREATININE FOR GFR 0.83 MG/DL (0.55-1.30); GLOMERULAR FILTRATION RATE > 60.0 (>39); GLUCOSE, FASTING 103 MG/DL (70-100); POTASSIUM SERUM 3.9 MEQ/L (3.5-5.1); SODIUM LEVEL 141 MEQ/L (136-145)
[2018-10-01 07:04] LABS: ERYTHROCYTE SEDIMENTATION RATE 91 mm/hr (0-30)
[2018-10-01] MEDS: predniSONE 5 MG TAB PO SCH (07:37)
[2018-10-01] MEDS: ASPIRIN 81 MG CHEW TABLET PO SCH (07:37)
[2018-10-01] MEDS: PERCOCET 5MG/325MG TAB PO PRN (07:37)
[2018-10-01] MEDS: PANTOPRAZOLE 40MG TAB (PROTONIX) PO SCH (07:37)
[2018-10-01 07:38] VITALS: BP 134/68
[2018-10-01] MEDS: POTASSIUM CHLORIDE 10 MEQ SR TABLET PO SCH (07:38)
[2018-10-01] MEDS: LOSARTAN 50 MG TAB PO SCH (07:38)
[2018-10-01] MEDS: ONDANSETRON 4 MG TAB (S0181) PO PRN (07:38)
[2018-10-01] MEDS: MAGNESIUM CHLORIDE 64 MG TABCR (SLO MAG) PO SCH (07:40)
[2018-10-01] MEDS: ENOXAPARIN 40 MG/0.4 ML SYRINGE (J1650) SC SCH (07:40)
[2018-10-01] MEDS ORDERED: PRED20TA PO (09:35)
--- NOTE | 2018-10-01 12:05 | DS.PDOC ---
Discharge Summary General Date of Admission Sep 29, 2018 at 23:56 Date of Discharge 10/01/2018 Attending Physician: SIMON OVIEDO MD Discharge Summary PROCEDURES PERFORMED DURING STAY: [None]. ADMITTING DIAGNOSES: 1. [Left shoulder pain]. DISCHARGE DIAGNOSES: 1. [left shoulder tendinitis]. COMPLICATIONS/CHIEF COMPLAINT: Back Pain. HISTORY OF PRESENT ILLNESS: [Ms. Cruz is a 73-year-old female who presents to [facility]'s Emergency Department with diffuse body wide. She is accompanied by her spouse. Patient states that her symptoms initially started a couple weeks ago on 09/14/2018 when she was lifting bags of mulch and bird seed when she thinks she pulled something in her left shoulder. She experienced pain throughout her entire left arm. There was no weakness, numbness, or tingling. There was no pain elsewhere and she was not diaphoretic. She was urged by family to be evaluated by the ED for possible heart attack. Troponin was negative. Elevation in creatinine. Chest x-ray revealing possible reactive airway disease versus mild pulmonary edema. Patient was discharged with instructions to discontinue Naproxen, Losartan, and Chlorthalidone. She was advised to start Amlodipine and Prednisone 40mg over the next four days. Instructed to follow up with her primary care provider. Patient returned to the ED on 09/22/2018 stating she developed a right sided radiating pain from her low back into her groin similar to a kidney stone. She has a remote history of kidney stones. However, she denies urinary symptoms, including dysuria, low pelvic pain, hematuria. Labs revealed a leukocytosis of 13.2, resolution in her elevated c reatinine, and positive urinalysis with trace leukocyte esterase, 4 WBC, and 1+ bacteria. Patient was discharged with urinary tract infection and prescribed Cephalexin 500mg by mouth every 12 hours for 10 days. Patient then presented to [facility] with back pain. She describes the pain as a "strained pain" which is not relieved with change in position, pain medication, ice pack, heating pad, or massage. She presents to [facility] ED with similar symptoms. Patient does not recall an inciting event. There has not been any trauma. She does feel weak overall. There is no numbness or tingling. She has not fallen. She is not incontinent of bladder or bowel. She does, on occasion note that it is difficult to rise from a chair, but does not have difficulty combing her hair. There are no "electric shock" sensations on her skin. She does report a diffuse red rash when she becomes ill, but is not itchy and usually dissipates 3 days into illness. She states that it has not occurred during this illness. Furthermore, she does report arthritis and has chronic swelling in her right an kle from a former ankle sprain. Denies sores in her mouth, genital region, or anywhere else on her body. There are no rashes or skin lesions. No chest pain or palpitations. No bladder concerns. She is unsure of specific weight loss, but her notes that she has lost about 10 pounds since the beginning of all of her musculoskeletal complaints. Emergency Department evaluation reveals stable vital signs. She has a mild neutrophilic leukocytosis. Her ESR is significantly elevated at 114. CRP is 11.6. Urinalysis was negative. Blood culture and respiratory panel are pending. Chest x-ray and T-spine MRI were unremarkable. MRI of C-spine and L/S-spine documented as follows: MRI C-spine without/with contrast reveals mild superficial soft tissue enhancement superficial to the C6 and C7 spinous processes, which may represent bruising or mild superficial ligament strain. No fluid collection or evidence of drainable soft tissue infection. No evidence of epidural abscess, spinal infection or acute disc extrusion. Mild cervical spondylosis as indicated above. MRI L/S-spine without/with contrast reveals mild subcutaneous and posterior paraspinous edema and enhancement suggesting mild muscular and subcutaneous inflammation extrinsic to the spinal canal and osseous spine. No abscess. No intradural or epidural abnormality and no significant neural compression at any level.]. HOSPITAL COURSE: [ Patient was admitted with the left shoulder pain. Dr. Louis has suspect polymy algia rheumatica and started patient on prednisone 25 mg by mouth daily. On examination, patient is unable to abduct her left arm above the left shoulder, most likely it's a tendinitis a ligament injury of the left shoulder and patient needs possibly orthopedic evaluation followed by physical therapy evaluation. Since patient has been started on by mouth steroids. I will continue for 5 days for possible relief. Referral to orthopedic surgery was provided to patient and she'll be discharged home today]. DISCHARGE MEDICATIONS: Please see below. ALLERGIES: Please see below. PHYSICAL EXAMINATION ON DISCHARGE: VITAL SIGNS: Please see below. GENERAL: [Within normal limits] HEENT: [PERRLA] NECK: [Supple] CARDIOVASCULAR EXAMINATION: [S1, S2, regular] RESPIRATORY EXAMINATION: [Clear to A&P] ABDOMINAL EXAMINATION: [Benign] EXTREMITIES: [Tenderness. Positive at the left shoulder and restriction of abduction of left arm on the shoulder still. Pulses equal bilaterally] SKIN: [Within normal limits] NEUROLOGICAL EXAMINATION: [. No focal motor or sensory deficit] PSYCHIATRIC EXAMINATION: [Within normal limits] LABORATORY DATA: Please see below. IMAGING: [As per EMR] PROGNOSIS: [Good ACTIVITY: [As tolerated]. DIET: [As tolerated] DISCHARGE PLAN: [Follow with orthopedic as an outpatient] DISPOSITION: Home, Self-Care. DISCHARGE INSTRUCTIONS: 1. [As above]. ITEMS TO FOLLOWUP ON ON OUTPATIENT: 1. [As above]. DISCHARGE CONDITION: [Stable]. TIME SPENT ON DISCHARGE:25 minutes. Vital Signs/I&Os Vital Signs Date Time Temp Pulse Resp B/P (MAP) Pulse Ox O2 Delivery O2 Flow Rate FiO2 10/01/18 08:07 18 10/01/18 07:38 134/68 10/01/18 06:00 98.0 68 96 09/30/18 01:02 Room Air I&O- Last 24 Hours up to 6 AM 10/01/18 06:00 Intake Total 900 ml Output Total 400 ml Balance 500 ml Laboratory Data Labs 24H Laboratory Tests 2 10/01/18 05:59: Nucleated Red Blood Cells % (auto) 0.0, Erythrocyte Sedimentation Rate 91H, Ani on Gap 7L, Glomerular Filtration Rate > 60.0, Blood Urea Nitrogen 17, Creatinine 0.83, Sodium Level 141, Potassium Level 3.9#, Chloride Level 108H, Carbon Dioxide Level 26, Calcium Level 9.4, C-Reactive Protein, Quantitative 6.23H CBC/BMP Laboratory Tests 10/01/18 05:59 Red Blood Count 3.05 L, Mean Corpuscular Volume 96.1 H, Mean Corpuscular Hemoglobin 31.8, Mean Corpuscular Hemoglobin Concent 33.1, Red Cell Distribution Width 12.0, Calcium Level 9.4 Microbiology Microbiology 09/29/18 Blood Culture - Preliminary, Resulted No growth after 24 hours . All specim... 09/29/18 Blood Culture - Preliminary, Resulted No growth after 24 hours . All specim... 09/30/18 Respiratory Virus Panel (PCR) (LIANG) - Final, Complete Discharge Medications Scheduled Acetaminophen (Acetaminophen) 500 Mg Tablet, 500 MG PO Q4H, (Reported) Aspirin (Aspirin) 81 Mg Tab.chew, 81 MG PO DAILY, (Reported) Azelastine HCl (Azelastine HCl) 0.15 % Spr, 2 SPRAYS NA BID, (Reported) Brimonidine Tartrate/Timolol (Combigan 0.2%-0.5% Eye Drops) 1 Sabra Sabra, 1 DROP OU BID, (Reported) Cyclosporine (Restasis) 0.05 % Emu, 1 DROP OU BID, (Reported) Krill/Om-3/Dha/Epa/Phospho/Ast (Megared Rainier-3 Krill Oil Sfgl) 1 Each Capsule, 1 EACH PO DAILY, (Reported) Losartan Potassium (Losartan Potassium) 100 Mg Tab, 100 MG PO DAILY, (Reported) Magnesium Chloride (Slow-Mag) 1 Tab Tab, 2 TAB PO DAILY, (Reported) Pantoprazole Sodium (Pantoprazole Sodium) 40 Mg Tablet.dr, 40 MG PO DAILY, (Reported) Potassium Chloride (Potassium Chloride) 10 Meq Tab, 10 MEQ PO DAILY, (Reported) Prednisone (Prednisone) 20 Mg Tablet, 20 MG PO DAILY Rosuvastatin Calcium (Rosuvastatin Calcium) 5 Mg Tablet, 5 MG PO DAILY, (Reported) Timolol Maleate (Timolol Maleate) 100 Drop/5 Ml Sabra, 1 DROP OU BID, (Reported) Travoprost (Travatan Z) 50 Drop/2.5 Ml Soln, 1 DROP OD QHS, (Reported) Scheduled PRN Diazepam (Diazepam) 5 Mg Tablet, 2.5 MG PO BID PRN for MUSCLE SPASMS, (Reported) Ibuprofen (Ibuprofen) 600 Mg Tablet, 600 MG PO TID PRN for PAIN, (Reported) Naproxen (Naproxen) 500 Mg Tab, 500 MG PO DAILY PRN for PAIN, (Reported) Ondansetron HCl (Ondansetron HCl) 4 Mg Tablet, 4 MG PO Q4H PRN for NAUSEA OR VOMITING, (Reported) Allergies Coded Allergies: codeine (Verified Adverse Reaction, Mild, nausea, 07/25/18) SIMON OVIEDO MD Oct 01, 2018 12:05
== END 2018-10-01 11:46 | disposition home or self-care (01) | DRG 558 ==
LOC: EDBD 16:27 → M ED 16:27 → M ED INP 23:56 → M MS5PR 09-30 01:15
PROVIDERS: ADMIT Internal Medicine; ATTEND Internal Medicine
DX: M65.812 Other synovitis and tenosynovitis, left shoulder (principal); I50.32 Chronic diastolic (congestive) heart failure; M54.2 Cervicalgia; M25.511 Pain in right shoulder; G47.33 Obstructive sleep apnea (adult) (pediatric); E83.42 Hypomagnesemia; I11.0 Hypertensive heart disease with heart failure; F32.9 Major depressive disorder, single episode, unspecified; H04.123 Dry eye syndrome of bilateral lacrimal glands; M35.3 Polymyalgia rheumatica; K21.9 Gastro-esophageal reflux disease without esophagitis; M62.838 Other muscle spasm; E78.5 Hyperlipidemia, unspecified; H40.9 Unspecified glaucoma; J30.2 Other seasonal allergic rhinitis; Z87.891 Personal history of nicotine dependence; Z79.82 Long term (current) use of aspirin; Z79.899 Other long term (current) drug therapy; Z88.5 Allergy status to narcotic agent

== ENCOUNTER → 2018-11-05 | Outpatient (REF) | payer OTHER ==
[~2018-11-05] MED LIST changes: +ACET-683 PO; +ASPI81CH33 PO; +DIAZ5TAB PO; +IBUP-1022 PO; +PATIENT COMMENTS; -ROSU5TAB4 PO; +ROSU5TAB5 PO
== END ==
LOC: M LAB REF 16:34
PROVIDERS: ATTEND Internal Medicine
DX: R79.82 Elevated C-reactive protein (CRP) (principal)

== ENCOUNTER → 2020-05-11 | Outpatient (REF) | payer OTHER ==
[~2020-05-11] MED LIST changes: +AMLO1TAB24 PO; -AMLO5TAB6 PO; -OMEP40CA2 PO; +OMEP40CA97 PO; +ONDA-83 PO; -ONDA4TAB5 PO; +PANT40TA29 PO; -PANT40TA3 PO
== END ==
LOC: M LAB REF 10:55
PROVIDERS: ATTEND Internal Medicine
DX: L30.9 Dermatitis, unspecified (principal); N76.0 Acute vaginitis; R30.0 Dysuria

== ENCOUNTER → 2021-05-18 | Outpatient (CLI) | payer OTHER ==
[~2021-05-18] MED LIST changes: +LOSA100T45 PO; -LOSA100T50 PO; +OMEP40CA4 PO; -OMEP40CA97 PO
== END ==
LOC: M WHC 14:48
PROVIDERS: ATTEND Internal Medicine
DX: Z12.31 Encounter for screening mammogram for malignant neoplasm of breast (principal); Z80.3 Family history of malignant neoplasm of breast

== ENCOUNTER 2021-07-06 15:27 | Emergency (ER) | payer OTHER ==
[~2021-07-06] VITALS: Ht 154.9 cm; Wt 65.5 kg
[2021-07-06] MEDS ORDERED: ONDANSETRON 4MG/2ML VIAL IV ONE (16:50)
[2021-07-06] MEDS ORDERED: NS 1,000 ML IV ONE (16:50)
[2021-07-06 17:49] LABS: BASO % 0.1 % (0.0-1.0); EOS % 0.2 % (0.0-3.0); HEMATOCRIT 39.9 % (36.0-47.0); HEMOGLOBIN 13.5 g/dl (12.0-15.5); LYMPH # 1.6 10^3/uL (1.5-5.0); LYMPH % 9.5 % (24.0-44.0); MEAN CORPUSCULAR HEMOGLOBIN 31.8 pg (27.0-33.0); MEAN CORPUSCULAR HGB CONC 33.8 g/dl (32.0-36.5); MEAN CORPUSCULAR VOLUME 94.1 fl (80.0-96.0); MONO # 1.5 10^3/uL (0.0-0.8); MONO % 9.3 % (2.0-8.0); NEUTROPHILS # 13.2 10^3/uL (1.5-8.5); NEUTROPHILS % 80.4 % (36.0-66.0); PLATELET COUNT, AUTOMATED 398 10^3/uL (150-450); RED BLOOD COUNT 4.24 10^6/uL (4.00-5.40); WHITE BLOOD COUNT 16.4 10^3/uL (4.0-10.0)
[2021-07-06] MEDS ORDERED: ISOVUE-370 76% 100ML VIAL As Ordered ONE (17:49)
[2021-07-06 17:50] LABS: ALBUMIN 3.6 GM/DL (3.2-5.2); BILIRUBIN,DIRECT 0.2 MG/DL (0.0-0.2); BILIRUBIN,TOTAL 0.6 MG/DL (0.2-1.0); TOTAL PROTEIN 7.2 GM/DL (6.4-8.2)
[2021-07-06] MEDS ORDERED: ACETAMINOPHEN TAB 650MG DOSE (2X325MG) PO ONE (18:35)
[2021-07-06] MEDS ORDERED: metroNIDAZOLE (FLAGYL) 500MG TABLET PO ONE (20:05)
[2021-07-06] MEDS ORDERED: CIPROFLOXACIN 400 MG in IV 1 EA IV ONE (20:05)
[2021-07-06 21:07] VITALS: BP 151/69
[2021-07-06] MEDS ORDERED: METR-265 PO (21:12)
[2021-07-06] MEDS ORDERED: CIPR-249 PO (21:12)
== END 2021-07-06 22:14 | disposition home or self-care (01) ==
LOC: M ED 15:27
DX: K57.32 Diverticulitis of large intestine without perforation or abscess without bleeding (principal); I10 Essential (primary) hypertension; F33.9 Major depressive disorder, recurrent, unspecified; F41.9 Anxiety disorder, unspecified; G47.33 Obstructive sleep apnea (adult) (pediatric); K21.9 Gastro-esophageal reflux disease without esophagitis; Z88.5 Allergy status to narcotic agent; Z79.899 Other long term (current) drug therapy; Z79.82 Long term (current) use of aspirin
CPT/HCPCS: 74177; 80047; 80076; 83690; 85025; 96361; 96365; 96366; 96375; 99284; J0744; J2405; Q9967

== ENCOUNTER → 2022-05-19 | Outpatient (CLI) | payer OTHER ==
[~2022-05-19] MED LIST changes: +CIPR-249 PO; +METR-265 PO
== END ==
LOC: M WHC 09:59
PROVIDERS: ATTEND Internal Medicine
DX: R92.2 Inconclusive mammogram (principal); M85.852 Other specified disorders of bone density and structure, left thigh

== ENCOUNTER → 2022-06-01 | Outpatient (CLI) | payer OTHER, MEDICARE | LOC: M WHC 09:35 | PROVIDERS: ATTEND Internal Medicine | DX: R92.2 Inconclusive mammogram (principal) | CPT/HCPCS: 77065; G0279 ==

== ENCOUNTER → 2022-07-06 | Outpatient (CLI) | payer OTHER, MEDICARE | LOC: M PLAIMG 15:22 | PROVIDERS: ATTEND Internal Medicine | DX: M54.2 Cervicalgia (principal) ==

== ENCOUNTER → 2022-07-11 | Outpatient (CLI) | payer OTHER, MEDICARE | LOC: M PLAIMG 14:56 → M PLALAB 14:56 | PROVIDERS: ATTEND Internal Medicine | DX: Z80.1 Family history of malignant neoplasm of trachea, bronchus and lung (principal); Z87.891 Personal history of nicotine dependence ==

== ENCOUNTER → 2022-07-29 | Outpatient (CLI) | payer OTHER, MEDICARE | LOC: M PLARAD 11:08 | PROVIDERS: ATTEND Internal Medicine | DX: R93.89 Abnormal findings on diagnostic imaging of other specified body structures (principal) ==

== ENCOUNTER → 2022-10-17 | Outpatient (REF) | payer OTHER, MEDICARE ==
[~2022-10-17] MED LIST changes: +FLUT50SP17; -FLUTISP; -LOSA100T45 PO; +LOSA100T46 PO
[2022-10-17 17:54] LABS: URIC ACID 6.5 MG/DL (3.1-7.8)
[2022-10-17 17:56] LABS: C REACTIVE PROTEIN QUANTITATIV < 0.40 MG/DL (<1.0)
[2022-10-17 17:57] LABS: TOTAL IRON BINDING CAPACITY 322 UG/DL (250-425)
[2022-10-17 17:59] LABS: IRON (FE) 33 UG/DL (50-170); PERCENT SATURATION 10.2 % (13.2-45.0)
[2022-10-17 18:01] LABS: FERRITIN 79.4 NG/ML (7.3-270.7)
== END ==
LOC: M LAB REF 16:23
PROVIDERS: ATTEND Internal Medicine
DX: M54.2 Cervicalgia (principal); M79.671 Pain in right foot; D64.9 Anemia, unspecified

== ENCOUNTER 2023-09-26 06:46 | Emergency (ER) | payer OTHER, MEDICARE ==
[~2023-09-26] VITALS: Ht 157.5 cm; Wt 62.8 kg
[~2023-09-26 06:46] MED LIST changes: -FLUT50SP17; +FLUTISP; +ROSU5TAB40 PO; -ROSU5TAB5 PO
[2023-09-26] MEDS ORDERED: NEOM10DR2 AS (07:40)
[2023-09-26 08:01] VITALS: BP 139/64; TEMP 97.8; O2SAT 97
== END 2023-09-26 08:11 | disposition home or self-care (01) ==
LOC: M ED 06:46
DX: H60.92 Unspecified otitis externa, left ear (principal); I10 Essential (primary) hypertension; K21.9 Gastro-esophageal reflux disease without esophagitis; G47.33 Obstructive sleep apnea (adult) (pediatric); Z88.5 Allergy status to narcotic agent; Z79.899 Other long term (current) drug therapy

== ENCOUNTER → 2023-10-18 | Outpatient (CLI) | payer OTHER, MEDICARE ==
[~2023-10-18] MED LIST changes: -AZEL0.055; +AZEL1SPR4; +NEOM10DR2 AS
== END ==
LOC: M PLAIMG 15:18
PROVIDERS: ATTEND Internal Medicine
DX: M25.512 Pain in left shoulder (principal)

== ENCOUNTER → 2023-12-11 | Outpatient (CLI) | payer OTHER, MEDICARE | LOC: M WUC 12:43 | PROVIDERS: ATTEND Nurse Practitioner Family | DX: M19.032 Primary osteoarthritis, left wrist (principal); M85.88 Other specified disorders of bone density and structure, other site; M25.532 Pain in left wrist ==

== ENCOUNTER → 2023-12-18 | Outpatient (REF) | payer OTHER, MEDICARE ==
[2023-12-18 18:11] LABS: URIC ACID 7.5 MG/DL (3.1-7.8)
[2023-12-18 18:13] LABS: C REACTIVE PROTEIN QUANTITATIV < 0.40 MG/DL (<1.0)
[2023-12-18 18:14] LABS: RHEUMATOID FACTOR QUANT 4.6 IU/ML (<14)
[2023-12-20 15:22] LABS: ANA SCREEN, IFA NEGATIVE (NEGATIVE)
[2023-12-21 01:27] LABS: CYCLIC CITRULLINATED PEPTIDE < 16 UNITS (<20)
== END ==
LOC: M LAB REF 16:13
PROVIDERS: ATTEND Internal Medicine
DX: M25.50 Pain in unspecified joint (principal)

== ENCOUNTER → 2024-02-27 | Outpatient (REF) | payer OTHER, MEDICARE | LOC: M LAB REF 13:37 | PROVIDERS: ATTEND Internal Medicine | DX: M25.50 Pain in unspecified joint (principal) ==

== ENCOUNTER → 2024-06-14 | Outpatient (CLI) | payer OTHER, MEDICARE ==
[~2024-06-14] MED LIST changes: -ROSU5TAB40 PO; +ROSU5TAB49 PO
== END ==
LOC: M WHC 13:05
PROVIDERS: ATTEND Internal Medicine
DX: Z12.31 Encounter for screening mammogram for malignant neoplasm of breast (principal); R92.333 Mammographic heterogeneous density, bilateral breasts; M85.851 Other specified disorders of bone density and structure, right thigh; M85.852 Other specified disorders of bone density and structure, left thigh; Z13.820 Encounter for screening for osteoporosis

== ENCOUNTER → 2024-07-04 | Outpatient (REF) | payer OTHER, MEDICARE | LOC: M LAB REF 17:36 | PROVIDERS: ATTEND Internal Medicine | DX: M10.9 Gout, unspecified (principal) ==

== ENCOUNTER → 2024-11-18 | Outpatient (REF) | payer OTHER, MEDICARE ==
[~2024-11-18] MED LIST changes: +ACET500T15 PO; +ALDA25TA2 PO; +BUPR-766 PO; +BUPR150T15 PO; -BUPR1TAB53 PO; +BUSP10TA PO; +CALC1TAB42 PO; +CARV6.25 PO; +CITA20TA6 PO; +ENTR1TAB7 PO; +FARX1TAB3 PO; +MULTTAB61 PO; +OLME1TAB92 PO; +OMEGCAP4 PO; +POTA-136 PO; +QUET1TAB17 PO; +SLOW1TAB3 PO; -SLOWTAB2 PO; +TORS5TAB2 PO
== END ==
LOC: M LAB REF 17:17
PROVIDERS: ATTEND Internal Medicine
DX: M10.9 Gout, unspecified (principal)

== ENCOUNTER → 2024-12-27 | Outpatient (REF) | payer OTHER, MEDICARE ==
[~2024-12-27] MED LIST changes: -IBUP-1022 PO; +IBUP600T42 PO
== END ==
LOC: M LAB REF 14:03
PROVIDERS: ATTEND Nurse Practitioner Family
DX: R30.0 Dysuria (principal)